=== PATIENT | female | born 2000 ===

== ENCOUNTER → 2024-07-10 11:00 | Outpatient (REF) | payer OTHER, SELFPAY | LOC: HO.CARD 11:00 | PROVIDERS: Visit Provider Emergency Medicine | DX: R42 Dizziness and giddiness (principal) | CPT/HCPCS: 93242 ==

== ENCOUNTER → 2024-07-10 12:26 | Outpatient (BNV) | payer OTHER, SELFPAY | PROVIDERS: Visit Provider Internal Medicine | DX: I47.10 Supraventricular tachycardia, unspecified (principal) | CPT/HCPCS: 93244 ==